=== PATIENT | male | born 2000 | race Caucasian/White ===

== ENCOUNTER 2018-10-31 14:19 | Emergency (ER) | payer OTHER ==
[2018-10-31 14:25] VITALS: BP 136/94; PULSE 103; TEMP 98; BMI 30.2
== END 2018-10-31 15:07 | disposition left against medical advice (07) ==
LOC: JERFT 14:19
DX: Z53.21 Procedure and treatment not carried out due to patient leaving prior to being seen by health care provider (principal)
CPT/HCPCS: 99281-25

== ENCOUNTER 2019-08-23 13:01 | Emergency (ER) | payer OTHER ==
[2019-08-23 13:28] VITALS: BP 142/92; PULSE 117; TEMP 99.5; BMI 22.9
--- NOTE | 2019-08-23 13:30 | PDOC ---
Rapid Medical Evaluation Time Seen by Provider: 08/23/19 13:25 Medical Evaluation: Allergies Allergy/AdvReac Type Severity Reaction Status Date / Time No Known Allergies Allergy Verified 10/31/18 14:25 08/23/19 13:25 I have performed a brief in-person evaluation of this patient. The patient presents with a chief complaint of:fever / headache since yesterday , took Ibuprofen 1 hour ago, Pertinent physical exam findings: AxOx3 I have ordered the following: Influenza ordered The patient will proceed to the ED for further evaluation.
--- NOTE | 2019-08-23 14:30 | PDOC ---
History of Present Illness - General Chief Complaint: Headache Stated Complaint: HEADACHE/FEVER Time Seen by Provider: 08/23/19 13:25 - History of Present Illness Initial Comments: 08/23/19 14:28 19-year-old male with a past medical history of seizures presents for evaluation of fever and headache x1 day Past History - Past Medical History Allergies/Adverse Reactions: Allergies Allergy/AdvReac Type Severity Reaction Status Date / Time No Known Allergies Allergy Verified 08/23/19 13:28 Home Medications: Ambulatory Orders levETIRAcetam [Keppra -] 2,000 mg PO BID 09/16/16 COPD: No Seizures: Yes - Immunization History Immunization Up to Date: No - Psycho Social/Smoking Cessation Hx Smoking Status: No Smoking History: Never smoked Have you smoked in the past 12 months: No Number of Cigarettes Smoked Daily: 0 Hx Alcohol Use: No Drug/Substance Use Hx: No Substance Use Type: None Review of Systems - Review of Systems Constitutional: Yes: Fever Neurological: Yes: Headache *Physical Exam - Vital Signs Last Vital Signs Temp Pulse Resp BP Pulse Ox 99.5 F 117 H 142/92 99 08/23/19 13:25 08/23/19 13:25 08/23/19 13:25 08/23/19 13:25 - Physical Exam Comments: 08/23/19 14:28 GENERAL: The patient is awake, alert, and fully oriented, in no acute distress. HEAD: Normal with no signs of trauma. EYES: sclera anicteric, conjunctiva clear. ENT: Ears normal NECK: Normal range of motion without pain no nuchal rigidity LUNGS: Breath sounds equal, clear to auscultation bilaterally. No wheezes, and no crackles. HEART: S1 and S2 without murmur, rub or gallop. ABDOMEN: Soft, nontender, normoactive bowel sounds. No guarding, no rebound. No masses. EXTREMITIES: Normal range of motion, no edema. No clubbing or cyanosis. No cords, erythema, or tenderness. NEUROLOGICAL: Cranial nerves II through XII grossly intact. Normal speech, normal gait. PSYCH: Normal mood, normal affect. SKIN: Warm, Dry, normal turgor, no rashes or lesions noted. Medical Decision Making - Medical Decision Making 08/23/19 14:29 Most likely a viral syndrome. We will have patient follow-up with PCP discussed use of Tylenol and Motrin for fever control Discharge - Discharge Information Problems reviewed: Yes Clinical Impression/Diagnosis: Viral syndrome Condition: Stable Disposition: HOME - Admission No - Follow up/Referral Referrals: Tsahia Jimenes MD [Staff Physician] - - Patient Discharge Instructions Patient Printed Discharge Instructions: DI for Viral Syndrome Additional Instructions: Tylenol and Motrin for fever. Return to the emergency room for worsening symptoms. Your flu swab was negative. Follow-up with your primary care physician in 1 to 2 days without fail for further evaluation and treatment options. - Post Discharge Activity
== END 2019-08-23 14:35 | disposition home or self-care (01) ==
LOC: JERFT 13:01
DX: B34.9 Viral infection, unspecified (principal); G40.909 Epilepsy, unspecified, not intractable, without status epilepticus
CPT/HCPCS: 87804; 99281-25

== ENCOUNTER 2020-07-02 12:28 | Emergency (ER) | payer OTHER ==
[2020-07-02 12:53] VITALS: BP 135/79; PULSE 107; TEMP 98.4; BMI 27.3
--- NOTE | 2020-07-02 13:13 | PDOC ---
History of Present Illness - General Chief Complaint: Seizure Stated Complaint: SEIZURES Time Seen by Provider: 07/02/20 13:09 - History of Present Illness Initial Comments: 07/03/20 14:12 20 yo male presents to ED with seizure disorder who presents to ED post witnessed seizure. Brother explains seizure lasted 3-5 minutes and both shaking and tensing typical of normal seizures with post ictal of 10-15 minutes. Pt last seizure three years ago and patient is medically compliant with vimapt (lacosamide) 150mg BID. Pt denies any extrenuous activity or activities out of his normal routine in the past few days. Pt denies any fevers, chills, cough, chest pain, emesis, change in bowel or urination. Pt last seizure three years ago. Pt back at baseline but has mild bilateral headache. PMH: Seizure disorder Meds: lacosamide 150mg BID Allergies: NKA PSH: denies Social: denies drugs, alchol and tobacco Neurologist: Dr. Whittington Past History - Medical History Allergies/Adverse Reactions: Allergies Allergy/AdvReac Type Severity Reaction Status Date / Time No Known Allergies Allergy Verified 07/02/20 13:22 Home Medications: Ambulatory Orders Atomoxetine HCl 100 mg PO DAILY 07/02/20 Lacosamide [Vimpat -] 150 mg PO BID 07/02/20 COPD: No Seizures: Yes - Immunization History Immunization Up to Date: No - Psycho-Social/Smoking History Smoking Status: No Smoking History: Never smoked Have you smoked in the past 12 months: No Number of Cigarettes Smoked Daily: 0 Information on smoking cessation initiated: No - Substance Abuse Hx (Audit-C & DAST Scrn) How often the patient has a drink containing alcohol: Never Score: In Men: 4 or > Positive; In Women: 3 or > Positive: 0 Screen Result (Pos requires Nsg. Audit-10AR): Negative In the last yr the pt used illegal drug/Rx for NonMed reason: No Score: Yes response is considered Positive: 0 Screen Result (Positive result requires Nsg. DAST-10): Negative Review of Systems - Review of Systems Comments:: 07/03/20 14:14 GENERAL/CONSTITUTIONAL: No fever or chills. No weakness. HEAD, EYES, EARS, NOSE AND THROAT: No change in vision. No sore throat. CARDIOVASCULAR: No chest pain or shortness of breath RESPIRATORY: No cough, wheezing, or hemoptysis. GASTROINTESTINAL: No nausea, vomiting, diarrhea or constipation. GENITOURINARY: No dysuria, frequency, or change in urination. MUSCULOSKELETAL: No joint or muscle swelling or pain. No neck or back pain. SKIN: No rash NEUROLOGIC: Headache, recent seizure. ENDOCRINE: No increased thirst. No abnormal weight change ALLERGIC/IMMUNOLOGIC: No hives *Physical Exam - Vital Signs Last Vital Signs Temp Pulse Resp BP Pulse Ox 98.4 F 107 H 20 135/79 98 07/02/20 12:50 07/02/20 12:50 07/02/20 12:50 07/02/20 12:50 07/02/20 12:50 - Physical Exam 07/03/20 14:17 GENERAL: Awake, alert, and fully oriented, in no acute distress HEAD: No signs of trauma, normocephalic, atraumatic EYES: PERRLA, EOMI, sclera anicteric, conjunctiva clear ENT: Auricles normal inspection, hearing grossly normal, nares patent, oropharynx clear without exudates. Moist mucosa NECK: Normal ROM, supple, no lymphadenopathy, JVD, or masses LUNGS: No distress, speaks full sentences, clear to auscultation bilaterally HEART: Regular rate and rhythm, normal S1 and S2, no murmurs, rubs or gallops, peripheral pulses normal and equal bilaterally. ABDOMEN: Soft, nontender No guarding, no rebound. No masses EXTREMITIES : Normal inspection, Normal range of motion, no edema. No clubbing or cyanosis. NEUROLOGICAL: Cranial nerves II through XII intact. Normal speech, normal gait. Finger to nose intact, heel to landeros intact. SKIN: Warm, Dry, normal turgor, no rashes or lesions noted Medical Decision Making - Medical Decision Making 07/02/20 13:51 20 yo male presents to ED with seizure disorder who presents to ED post witnessed seizure. Brother explains seizure lasted 3-5 minutes and both shaking and tensing typical of normal seizures with post ictal of 10-15 minutes. Pt last seizure three years ago and patient is medically compliant with vimapt (lacosamide) 150mg BID. Pt currently back at baseline only complaining of mild headache. Pt neurologist Dr. Whittington was called who stated give him extra 50mg dosage and start taking lacosamide 150 mg in the morinng and 200mg at night. Will dc home with strict precautions to return if seizures come back. Pt to follow up with Dr. Burton within one month per Dr. Whittington. Discharge - Discharge Information Problems reviewed: Yes Clinical Impression/Diagnosis: Seizure Qualifiers: Convulsion type: unspecified Qualified Code(s): R56.9 - Unspecified convulsions Condition: Stable Disposition: HOME - Follow up/Referral Referrals: Santi Ring MD [Primary Care Provider] - - Patient Discharge Instructions Patient Printed Discharge Instructions: DI for Seizure Disorder -- Adult Additional Instructions: You came to the ED for seizure. This is most likely due to your seizure disorder. At the ED we assessed you and called your neurologist Dr. Burton. He instructed us to give you an extra 50mg of your medication lacosamide. He then starting tomorrow to take 150mg lacosamide in the morning and then 200mg lacosamide at night. He sent a prescription to your pharmacy. He also said to call him and schedule an appointment within a month. If you have any of the following please retur: - fevers - another seizure - worsening headache For any emergencies please return to the ED. - Post Discharge Activity
[2020-07-02] MEDS ORDERED: ACETAMINOPHEN 325 MG TABLET (FP) PO ONE (13:44)
[2020-07-02] MEDS ORDERED: LACOSAMIDE 50 MG TABLET PO ONE ×3 (13:50→14:11)
--- NOTE | 2020-07-02 13:57 | PDOC ---
Documentation entered by José Nuñez SCRIBE, acting as scribe for Jocelyne Tse MD. Jocelyne Tse MD: This documentation has been prepared by the scribe, José Nuñez SCRIBE, under my direction and personally reviewed by me in its entirety. I confirm that the documentation accurately reflects all work, treatment, procedures, and medical decision making performed by me. Attending Attestation - Resident Resident Name: Iain Cruz - ED Attending Attestation I have performed the following: I have examined & evaluated the patient, The case was reviewed & discussed with the resident, I agree w/resident's findings & plan, Exceptions are as noted - HPI HPI: 20 yo M history seizures presents s/p seizure at home. He states his hands are shaky at present. +Mild headache. He takes two seizure medications, one of the doses was recently decreased over the summer. No recent missed meds, fevers, sleep problems. - Physicial Exam PE: GENERAL: Awake, alert, and fully oriented, in no acute distress HEAD: No signs of trauma EYES: PERRLA, EOMI, sclera anicteric, conjunctiva clear ENT: Auricles normal inspection, hearing grossly normal, nares patent, oropharynx clear without exudates. Moist mucosa NECK: Normal ROM, supple, no lymphadenopathy, JVD, or masses LUNGS: Breath sounds equal, clear to auscultation bilaterally. No wheezes, and no crackles HEART: Regular rate and rhythm, normal S1 and S2, no murmurs, rubs or gallops ABDOMEN: Soft, nontender, normoactive bowel sounds. No guarding, no rebound. No masses EXTREMITIES: Normal range of motion, no edema. No clubbing or cyanosis. No cords, erythema, or tenderness. Mild tremors to the hands B/L NEUROLOGICAL: Cranial nerves II through XII grossly intact. Normal speech. Motor and sensation intact SKIN: Warm, Dry, normal turgor, no rashes or lesions noted. - Medical Decision Making Case d/w patient's neurologist via phone. Recommended an additional dose of vimpat, and he will send a new script to the pharmacy. Discharge - Discharge Information Problems reviewed: Yes Clinical Impression/Diagnosis: Seizure Qualifiers: Convulsion type: unspecified Qualified Code(s): R56.9 - Unspecified convulsions Condition: Stable - Follow up/Referral Referrals: Santi Ring MD [Primary Care Provider] - - Patient Discharge Instructions - Post Discharge Activity
[2020-07-02] MEDS ORDERED: LORazepam 2 MG/ML SDV VIAL ONE (14:04)
[2020-07-02] MEDS ORDERED: ACETAMINOPHEN 325 MG TABLET (FP) ONE (14:10)
== END 2020-07-02 15:37 | disposition home or self-care (01) ==
LOC: JER 12:28
DX: R56.9 Unspecified convulsions (principal)
CPT/HCPCS: 99283-25